=== PATIENT | female | born 1945 | race Caucasian/White ===

== ENCOUNTER 2018-01-03 13:37 | Emergency (ER) | payer MEDICARE, OTHER ==
[2018-01-03] MEDS ORDERED: NORMAL SALINE 1000 ML 1,000 ML IV ONE (14:10)
[2018-01-03] MEDS ORDERED: ONDANSETRON HCL INJ/PF 4 MG/2 ML SDV IV ONE (14:10)
--- NOTE | 2018-01-03 14:18 | ER Document Report ---
ED General - General Stated Complaint: VOMITING Time Seen by Provider: 01/03/18 13:53 TRAVEL OUTSIDE OF THE [place] IN LAST 30 DAYS: No - HPI Notes: Patient is a 72-year-old female with a history of GERD and hypertension who presents to the ED complaining of hematemesis prior to arrival, abdominal bloating, and abdominal pain. Patient states that she was cleaning the mandaen then her house when she began feeling symptoms and throw up in the bathroom. The blood was bright red per patient and daughter. Patient states that she has had dark/black stools for 1 week. Patient reports having a colonoscopy and endoscopy performed within the last couple years. Patient states that she has otherwise been eating and drinking without any difficulties. She is urinating normally. Patient states that she believes she has a ureterocele versus cystocele which has been a chronic developing pain, and which she is scheduled for an appointment with the women[facility] clinic tomorrow for. At this time patient family state that that is not the primary concern and what brought them in was the hematemesis. Patient otherwise has not had any recent illness. She denies any surgical abdominal history. Denies any drug allergies, smoking, or IV drug use. Denies any headache, fever, neck pain, changes in vision/speech/mentation/ hearing, URI, sore throat, chest pain, palpitations, syncope, cough, shortness of breath, wheeze, dyspnea, diarrhea, urinary retention, dysuria, hematuria, back pain, loss of control of bowel or bladder, numbness/tingling, saddle anesthesia, muscle paralysis/weakness, or rash. - Related Data Allergies/Adverse Reactions: No Known Allergies Allergy (Unverified 08/11/13 11:24) Past Medical History - Social History Smoking Status: Never Smoker Family History: Reviewed & Not Pertinent - Past Medical History Cardiac Medical History: Reports: Hx Hypercholesterolemia Musculoskeltal Medical History: Reports Hx Arthritis - Immunizations Hx Diphtheria, Pertussis, Tetanus Vaccination: Yes Review of Systems - Review of Systems -: Yes All other systems reviewed and negative Physical Exam - Vital signs Vitals: Temp Pulse Resp BP Pulse Ox 98.8 F 109 H 18 109/47 L 100 01/03/18 13:55 01/03/18 13:55 01/03/18 13:55 01/03/18 13:55 01/03/18 13:55 - Notes Notes: PHYSICAL EXAMINATION: GENERAL: Well-appearing, well-nourished and in no acute distress. A&Ox4. Answers questions appropriately. HEAD: Atraumatic, normocephalic. EYES: Pupils equal round and reactive to light, extraocular movements intact, sclera anicteric, conjunctiva are normal. ENT: Nares patent and without discharge. oropharynx clear without exudates. No tonsilar hypertrophy or erythema. Moist mucous membranes. NECK: Normal range of motion, supple without lymphadenopathy LUNGS: Breath sounds clear to auscultation bilaterally and equal. No wheezes rales or rhonchi. HEART: Regular rate and rhythm without murmurs, rubs, gallops. ABDOMEN: Soft, nondistended abdomen. No guarding, no rebound. No masses appreciated. Hypoactive bowel sounds present. No CVA tenderness bilaterally. + mid abdominal tenderness and mild to the epigastrum. + tympanic sounds to the abd, + firmness to palp. No tenderness at McBurney. Musculoskeletal: FROM to passive/active. Strength 5+/5. Extremities: No cyanosis, clubbing, or edema b/l. Peripheral pulses 2+. Capillary refill less than 3 seconds. NEUROLOGICAL: MMSE intact. Cranial nerves grossly intact. Normal speech, normal gait. Normal sensory, motor exams PSYCH: Normal mood, normal affect. SKIN: Warm, Dry, normal turgor, no rashes or lesions noted. Course - Re-evaluation Re-evalutation: 01/03/18 15:28 Patient is an afebrile, well-hydrated, 72-year-old female who presents to the ED with a GI bleed. Vitals are stable. PE is otherwise unremarkable. Patient is hemodynamically stable currently. Patient has a hemoglobin of 8.3 and a hematocrit of 23.1. Coagulations are stable. See CMP results. Guaiac positive. Patient had a bleeding episode of hematemesis prior to arrival. Type and screen has already been ordered at 1421. Patient does not warrant transfusion at this time, but we will recheck an H&H after 4 hours from when initial blood was drawn if pt is still in the ED. We will start transfer at this time as we do not have gastroenterology. Protonix bolus/cont ordered. 01/03/18 16:10 Pt began having hematemesis upon return from CT. x2 and then stopped Visual of bright red blood noted. Pt's pressure dropped to 70's over low 40's. HR 110 2L bolus' were started immediately I consulted with my supervising physician Dr. Mims, and started transfer for rapid transport. 01/03/18 16:35 CT results returned. See results. [facility] accepted. ([facility] not accepting patients at this time due to census issues--first choice of pt/family) Dr. Stevens ([facility]), rapid transport. We opted for flight due to current hemodynamic instability. Family are in agreement Pressure stabilizing to 80's over 40's approx and holding. Continue bolus', added octreotide. No pressors at this time. 01/03/18 16:50 BP approx 90's over 50's +/-. HR staying 100-110. No recurrence of emesis. Emergent blood release called for. 01/03/18 17:15 Pt on 4th liter bolus, 1 unit blood already given, 2nd hanging. BP remaining stable. Pt condition without acute changes 01/03/18 17:40 Pt has no new concerns or complaints. Vitals are holding stable for now. 113/53, HR 115 at discharge with flight crew. Reviewed case with the flight crew. Stable for transfer. 01/03/18 19:02 - Vital Signs Vital signs: Temp Pulse Resp BP Pulse Ox 98.5 F 109 H 18 113/53 L 100 01/03/18 17:45 01/03/18 13:55 01/03/18 17:46 01/03/18 17:46 01/03/18 17:45 - Laboratory Result Diagrams: 01/03/18 14:21 01/03/18 14:21 Laboratory results interpreted by me: 01/03/18 01/03/18 01/03/18 14:21 14:21 14:21 RBC 2.37 L Hgb 8.3 L Hct 23.1 L MCV 98 H MCH 35.2 H RDW 16.8 H Seg Neutrophils % 82.5 H Lymphocytes % 8.5 L PT 15.6 H Sodium 134.5 L Glucose 116 H Total Bilirubin 1.6 H Direct Bilirubin 0.6 H AST 91 H ALT 58 H Total Protein 5.3 L Albumin 2.9 L Crossmatch 01/03/18 14:21 RBC Hgb Hct MCV MCH RDW Seg Neutrophils % Lymphocytes % PT Sodium Glucose Total Bilirubin Direct Bilirubin AST ALT Total Protein Albumin Crossmatch See Detail Discharge - Discharge Clinical Impression: GI bleed Qualifiers: GI bleed type/associated pathology: unspecified gastrointestinal hemorrhage type Qualified Code(s): K92.2 - Gastrointestinal hemorrhage, unspecified Condition: Serious Disposition: [facility] Referrals: OMARI BALDERRAMA PA [Primary Care Provider] - Follow up as needed
[2018-01-03 14:49] LABS: ABSOLUTE BASOPHILS # (AUTO) 0.1 10^3/uL (0.0-0.2); ABSOLUTE EOSINOPHILS # (AUTO) 0.1 10^3/uL (0.0-0.6); ABSOLUTE LYMPHOCYTES (AUTO) 0.7 10^3/uL (0.5-4.7); ABSOLUTE MONOCYTES (AUTO) 0.6 10^3/uL (0.1-1.4); ABSOLUTE NEUT (AUTO) 6.5 10^3/uL (1.7-8.2); BASOPHILS % (AUTO) 0.7 % (0-2); EOSINOPHILS % (AUTO) 0.9 % (0-6); HEMATOCRIT 23.1 % (36.0-47.0); HEMOGLOBIN 8.3 g/dL (12.0-15.5); LYMPHOCYTES % (AUTO) 8.5 % (13-45); MEAN CORPUSCULAR HEMOGLOBIN 35.2 pg (27.0-33.4); MEAN CORPUSCULAR VOLUME 98 fl (80-97); MONOCYTES % (AUTO) 7.4 % (3-13); PLATELET COUNT 163 10^3/uL (150-450); RED BLOOD COUNT 2.37 10^6/uL (3.72-5.28); RED CELL DISTRIBUTION WIDTH 16.8 % (11.5-14.0); SEGMENTED NEUTROPHILS % (AUTO) 82.5 % (42-78); TOTAL CELLS COUNTED % (AUTO) 100 %; WHITE BLOOD COUNT 7.9 10^3/uL (4.0-10.5)
[2018-01-03 14:55] LABS: INTERNATIONAL RATION (INR) 1.16; PROTHROMBIN TIME 15.6 SEC (11.4-15.4)
[2018-01-03 14:56] LABS: PARTIAL THROMBOPLASTIN TIME 31.6 SEC (23.5-35.8)
[2018-01-03 15:08] LABS: ALANINE AMINOTRANSFERASE 58 U/L (9-52); ALBUMIN 2.9 g/dL (3.5-5.0); ALKALINE PHOSPHATASE 63 U/L (38-126); ANION GAP 5 (5-19); ASPARTATE AMINO TRANSFERASE 91 U/L (14-36); BILIRUBIN,DIRECT 0.6 mg/dL (0.0-0.4); BILIRUBIN,TOTAL 1.6 mg/dL (0.2-1.3); BLOOD UREA NITROGEN 17 mg/dL (7-20); CALCIUM 9.9 mg/dL (8.4-10.2); CARBON DIOXIDE 25 mmol/L (22-30); CHLORIDE 105 mmol/L (98-107); GLUCOSE 116 mg/dL (75-110); POTASSIUM 3.9 mmol/L (3.6-5.0); SODIUM 134.5 mmol/L (137-145); TOTAL PROTEIN 5.3 g/dL (6.3-8.2)
[2018-01-03] MEDS ORDERED: PANTOPRAZOLE SODIUM 40 MG VIAL IV PRN (15:26)
[2018-01-03] MEDS ORDERED: PANTOPRAZOLE SODIUM 40 MG VIAL IV ONE (15:26)
--- NOTE | 2018-01-03 16:05 | RADIOLOGY REPORT (SQ) ---
EXAM DESCRIPTION: CT ABD/PELVIS WITH IV ONLY COMPLETED DATE/TIME: 01/03/2018 3:53 pm REASON FOR STUDY: abdominal pain COMPARISON: None. TECHNIQUE: CT scan of the abdomen and pelvis performed using helical scanning technique with dynamic intravenous contrast injection. No oral contrast. Images reviewed with lung, soft tissue, and bone windows. Reconstructed coronal and sagittal MPR images reviewed. Delayed images for evaluation of the urinary system also acquired. All images stored on PACS. All CT scanners at this facility use dose modulation, iterative reconstruction, and/or weight based d osing when appropriate to reduce radiation dose to as low as reasonably achievable (ALARA). [facility]: Dose Right [facility]: CareDose [facility]: Dose Right [facility]: Teradose 4D [facility]: CrowdCompass CONTRAST TYPE AND DOSE: contrast/concentration: Isovue 370.00 mg/ml; Total Contrast Delivered: 69.0 ml; Total Saline Delivered: 45.0 ml RENAL FUNCTION: Creatinine 0.72 RADIATION DOSE: CT Rad equipment meets quality standard of care and radiation dose reduction techniq ues were employed. CTDIvol: NaN - NaN mGy. DLP: 0 mGy-cm.. LIMITATIONS: None. FINDINGS: LOWER CHEST: No significant findings. No nodules or infiltrates. LIVER: Normal size. No masses. No dilated ducts. SPLEEN: The spleen appears enlarged without focal splenic abnormalities being identified. PANCREAS: No masses. No significant calcifications. No adjacent inflammation or peripancreatic fluid collections. Pancreatic duct not dilated. GALLBLADDER: No identified stones by CT criteria. No inflammatory changes to suggest cholecystitis. ADRENAL GLANDS: No significant masses or asymmetry. RIGHT KIDNEY AND URETER: No solid masses. No significant calcifications. No hydronephrosis or hyd roureter. LEFT KIDNEY AND URETER: No solid masses. No significant calcifications. No hydronephrosis or hydr oureter. AORTA AND VESSELS: No aneurysm. No dissection. Renal arteries, SMA, celiac without stenosis. RETROPERITONEUM: No retroperitoneal adenopathy, hemorrhage or masses. BOWEL AND PERITONEAL CAVITY: No masses or inflammatory changes. A large amount of intra-abdominal an d pelvic ascitic fluid is identified. APPENDIX: Not and PELVIS: Large amount of pelvic ascitic fluid is identified. ABDOMINAL WALL: No masses. No hernias. BONES: No significant or acute findings. OTHER: No other significant finding. IMPRESSION: A large amount of intra-abdominal and pelvic ascitic fluid is identified. The spleen ap pears enlarged without focal splenic abnormalities being identified. Other findings as noted above TECHNICAL DOCUMENTATION: JOB ID: [id number] Quality ID # [id number]: Final reports with documentation of one or more dose reduction techniques (e.g., Au tomated exposure control, adjustment of the mA and/or kV according to patient size, use of iterative reconstruction technique) 2010 [employer]- All Rights Reserved
--- NOTE | 2018-01-03 16:13 | RADIOLOGY REPORT (SQ) ---
EXAM DESCRIPTION: CHEST SINGLE VIEW COMPLETED DATE/TIME: 01/03/2018 3:59 pm REASON FOR STUDY: abdominal/epigastric pain COMPARISON: February 2014 EXAM PARAMETERS: NUMBER OF VIEWS: One view. TECHNIQUE: Single frontal radiographic view of the chest acquired. RADIATION DOSE: NA LIMITATIONS: None. FINDINGS: LUNGS AND PLEURA: No opacities, masses or pneumothorax. No pleural effusion. MEDIASTINUM AND HILAR STRUCTURES: No masses. Contour normal. HEART AND VASCULAR STRUCTURES: Heart normal in size. Normal vasculature. BONES: No acute findings. HARDWARE: None in the chest. OTHER: Some elevation of the right hemidiaphragm is seen. IMPRESSION: NO ACUTE RADIOGRAPHIC FINDING IN THE CHEST. TECHNICAL DOCUMENTATION: JOB ID: [id number] [employer]- All Rights Reserved
[2018-01-03] MEDS ORDERED: NORMAL SALINE 500 ML with OCTREOTIDE ACETATE 500 MCG IV PRN ×2 (16:28)
[2018-01-03] MEDS ORDERED: NORMAL SALINE 250 ML IV PRN (16:33)
[2018-01-03] MEDS ORDERED: OCTREOTIDE ACETATE INJ/PF 100 MCG/1 ML SDV IV PRN (17:20)
[2018-01-03 18:24] VITALS: BP 113/53
[2018-01-03 21:39] LABS: APPEARANCE,URINE SLIGHTLY-CLOUDY; BILIRUBIN,URINE NEGATIVE (NEGATIVE); COLOR,URINE YELLOW; GLUCOSE, URINE NEGATIVE (NEGATIVE); KETONES,URINE NEGATIVE (NEGATIVE); LEUKOCYTE ESTERASE,URINE NEGATIVE (NEGATIVE); NITRITE,URINE NEGATIVE (NEGATIVE); PROTEIN,URINE NEGATIVE (NEGATIVE); URINE SPECIFIC GRAVITY 1.034; UROBILINOGEN,URINE NEGATIVE mg/dL (<2.0)
--- NOTE | 2018-01-04 08:55 | EKG REPORT ---
SEVERITY:- BORDERLINE ECG - SINUS TACHYCARDIA BORDERLINE T ABNORMALITIES, DIFFUSE LEADS : Confirmed by: Franklin Meneses 04-Jan-2018 08:54:52
== END 2018-01-03 17:25 | disposition short-term general hospital (02) ==
LOC: ER 13:37
DX: K92.2 Gastrointestinal hemorrhage, unspecified (principal); R14.0 Abdominal distension (gaseous); R11.10 Vomiting, unspecified; K21.9 Gastro-esophageal reflux disease without esophagitis; E78.00 Pure hypercholesterolemia, unspecified
CPT/HCPCS: 93005; 99285; 96361; 96375; 96365; 96366; 86900; 86901; 36415; 36430; 86850; 85025; 85610; 85730; 82272; 80053; 81001; 86920; 71045; 74177; 93010; P9016; A9270; C9113; J2405; J7030; J2354; S0164

== ENCOUNTER 2018-02-13 15:26 | Day surgery (SDC) | payer MEDICARE, OTHER ==
[2018-02-13] MEDS ORDERED: NALOXONE HCL INJ/PF 0.4 MG/1 ML SDV ONE (16:13)
[2018-02-13] MEDS ORDERED: MIDAZOLAM 2 MG/2 ML INJ ONE (16:14)
[2018-02-13] MEDS ORDERED: GLUCAGON,HUMAN RECOMB 1 MG INJ ONE (16:14)
[2018-02-13] MEDS ORDERED: FLUMAZENIL INJ 0.5 MG/5 ML VIAL ONE (16:14)
[2018-02-13] MEDS ORDERED: EPINEPHRINE INJ 1 MG/10 ML DISP.SYRIN ONE (16:14)
[2018-02-13] MEDS ORDERED: ONDANSETRON HCL INJ/PF 4 MG/2 ML SDV ONE (17:16)
[2018-02-13] MEDS: FENTANYL CITRATE INJ/PF 100 MCG/2 ML AMPUL ONE ×2 (17:31→17:32)
--- NOTE | 2018-02-13 18:11 | Operative Report ---
Operative Report DATE OF SURGERY: 02/13/18 Operative Report: Pre-op diagnosis: History of esophageal varices with bleeding Post-op diagnosis: 1. Esophageal varices 2. Antral gastritis Surgery: Esophagogastroduodenoscopy with biopsy and variceal banding Medications: Versed 2mg Fentanyl 100mcg IV push Tissue removed: Antral biopsy for pathology Procedure: After informed consent obtained from patient, the throat was sprayed with Hurricane and conscious sedation was achieved. The upper endoscope was inserted into the esophagus under direct vision and advanced into the stomach. The duodenum was entered and examined to the second part. Endoscope was then slowly pulled out of the patient as the mucosa was examined into details. Patient tolerated procedure well. Findings Esophagus: 2 short columns of varices were identified and 4 rubber bands were applied. Antrum: Mild erythema. Biopsy was taken Body: Normal Fundus: Normal Duodenum first part: Normal Duodenum second part: Normal Plan: Await pathology. Continue omeprazole and nadolol. Use Viscous Lidocaine as needed and Carafate 4 times a day for 1 week. Repeat EGD in 4-6 weeks OPERATION: .
[2018-02-13 18:42] VITALS: BP 130/70
== END 2018-02-13 18:54 | disposition home or self-care (01) ==
LOC: END 15:26
PROVIDERS: ATTEND Internal Medicine Gastroenterology
DX: I85.00 Esophageal varices without bleeding (principal); K29.70 Gastritis, unspecified, without bleeding; K74.69 Other cirrhosis of liver; R18.8 Other ascites; K76.6 Portal hypertension; M06.9 Rheumatoid arthritis, unspecified; E78.5 Hyperlipidemia, unspecified; R00.2 Palpitations; D64.9 Anemia, unspecified; Z79.899 Other long term (current) drug therapy; Z85.89 Personal history of malignant neoplasm of other organs and systems
CPT/HCPCS: 43239; 43244; 88342 ×2; 88305 ×2; J2250; J3010; J2405; J0171; J1610; J2310; J3490

== ENCOUNTER 2018-03-27 15:14 | Day surgery (SDC) | payer MEDICARE, OTHER ==
[2018-03-27] MEDS ORDERED: NALOXONE HCL INJ/PF 0.4 MG/1 ML SDV ONE (15:40)
[2018-03-27] MEDS ORDERED: EPINEPHRINE INJ 1 MG/10 ML DISP.SYRIN ONE (15:41)
[2018-03-27] MEDS ORDERED: GLUCAGON,HUMAN RECOMB 1 MG INJ ONE (15:41)
[2018-03-27] MEDS ORDERED: FLUMAZENIL INJ 0.5 MG/5 ML VIAL ONE (15:41)
[2018-03-27] MEDS ORDERED: MIDAZOLAM 2 MG/2 ML INJ ONE (15:41)
[2018-03-27] MEDS: FENTANYL CITRATE INJ/PF 100 MCG/2 ML AMPUL ONE ×2 (18:45→18:47)
[2018-03-27] MEDS ORDERED: ONDANSETRON HCL INJ/PF 4 MG/2 ML SDV ONE (18:45)
--- NOTE | 2018-03-27 19:08 | Operative Report ---
Operative Report DATE OF SURGERY: 03/27/18 Operative Report: Pre-op diagnosis: History of cirrhosis with esophageal varices Post-op diagnosis: 1. Distal esophageal varices Surgery: Esophagogastroduodenoscopy with variceal rubberbanding Medications: Versed 2mg Fentanyl 100mcg IV push Tissue removed: None Procedure: After informed consent obtained from patient, the throat was sprayed with Hurricane and conscious sedation was achieved. The upper endoscope was inserted into the esophagus under direct vision and advanced into the stomach. The duodenum was entered and examined to the second part. Endoscope was then slowly pulled out of the patient as the mucosa was examined into details. Patient tolerated procedure well. Findings Esophagus: 2 short columns of varices were identified in the distal esophagus with areas of scarring. 4 rubber bands were applied Antrum: Normal Body: Normal Fundus: Normal Duodenum first part: Normal Duodenum second part: Normal Plan: Follow-up EGD with banding in 3-6 months OPERATION: .
[2018-03-27 19:51] VITALS: BP 120/65
== END 2018-03-27 20:00 | disposition home or self-care (01) ==
LOC: END 15:14
PROVIDERS: ATTEND Internal Medicine Gastroenterology
DX: I85.00 Esophageal varices without bleeding (principal); K74.69 Other cirrhosis of liver; K76.6 Portal hypertension; M06.9 Rheumatoid arthritis, unspecified; E78.5 Hyperlipidemia, unspecified; D64.9 Anemia, unspecified; Z79.899 Other long term (current) drug therapy; Z85.89 Personal history of malignant neoplasm of other organs and systems; Z87.19 Personal history of other diseases of the digestive system
CPT/HCPCS: 43244; J2250; J3010; J2405; J0171; J1610; J2310; J3490

== ENCOUNTER → 2018-08-21 | Outpatient (CLI) | payer MEDICARE, OTHER ==
--- NOTE | 2018-08-21 15:10 | WOMENS IMAGING REPORT ---
EXAM DESCRIPTION: BONE DENSITY HIP/SPINE COMPLETED DATE/TIME: 08/21/2018 2:13 pm REASON FOR STUDY: BONE DENSITY SCAN /M81.0 M81.0 AGE-RELATED OSTEOPOROSIS W/O CURRENT PATHOLOGICAL FRAC COMPARISON: None. TECHNIQUE: Dual-Energy X-ray Absorptiometry (DEXA) of the AP Spine and Hip. LIMITATIONS: None. FINDINGS: LUMBAR SPINE: The bone mineral density (BMD) measured from L1-L4 in the AP projection correlates with a T-score of -1.6, which is osteopenia as defined by the World Health Organization. HIP: The bone mineral density (BMD) measured in the left hip correlates with a T-score of -2.3, which is o steopenia as defined by the World Health Organization. IMPRESSION: 1. LUMBAR SPINE: OSTEOPENIA. 2. HIP: OSTEOPENIA. COMMENT: The patient has been treated for osteoporosis. The World Health Organization defines low BMD as follows: T-score: Normal: Greater than -1.0 Osteopenia: Between -1.0 and -2.5 Osteoporosis: Less than -2.5 without fractures Established osteoporosis: Less than -2.5 with fractures In general, you may wish to consider: Diagnosis Treatment Follow-up DEXA Normal BMD Prevention 2-3 years Osteopenia Prevention/Therapy 1-2 years Osteoporosis Therapy Yearly TECHNICAL DOCUMENTATION: JOB ID: [id number] [employer]- All Rights Reserved Reading location - IP/workstation name: [email or web address]
== END ==
LOC: WI 13:39
PROVIDERS: ATTEND Internal Medicine
DX: M81.0 Age-related osteoporosis without current pathological fracture (principal)
CPT/HCPCS: 77080

== ENCOUNTER → 2018-09-14 | Outpatient (CLI) | payer MEDICARE, OTHER ==
--- NOTE | 2018-09-14 08:35 | RADIOLOGY REPORT (SQ) ---
EXAM DESCRIPTION: U/S ABDOMEN LIMITED W/O DOP COMPLETED DATE/TIME: 09/14/2018 8:24 am REASON FOR STUDY: CIRRHOSIS, NON-ALCOHOL (K74.69) K74.69 OTHER CIRRHOSIS OF LIVER COMPARISON: CT abdomen pelvis dated 01/03/2018 TECHNIQUE: Dynamic and static grayscale images acquired of the abdomen and recorded on PACS. Additio nal selected color Doppler and spectral images recorded. LIMITATIONS: None. FINDINGS: PANCREAS: No masses. Visualized pancreatic duct normal caliber. LIVER: The liver is echogenic consistent with fatty infiltration. No focal masses. LIVER VASCULATURE: Normal directional flow of the main portal vein and hepatic veins. GALLBLADDER: No stones. Normal wall thickness. No pericholecystic fluid. ULTRASOUND-DETECTED DICKEY'S SIGN: Negative. INTRAHEPATIC DUCTS AND COMMON DUCT: CBD and intrahepatic ducts normal caliber. No filling defects. INFERIOR VENA CAVA: Normal flow. AORTA: No aneurysm. RIGHT KIDNEY: Normal size. Normal echogenicity. No solid or suspicious masses. No hydronephrosis. No calcifications. The inferior pole is obscured by overlying bowel gas. PERITONEAL AND RIGHT PLEURAL SPACE: No ascites or effusions. OTHER: No other significant findings. IMPRESSION: Fatty infiltrated liver. No other significant findings. TECHNICAL DOCUMENTATION: JOB ID: [id number] [employer]- All Rights Reserved Reading location - IP/workstation name: [email or web address]
== END ==
LOC: RAD 07:47
PROVIDERS: ATTEND Internal Medicine Gastroenterology
DX: K74.69 Other cirrhosis of liver (principal)
CPT/HCPCS: 76705

== ENCOUNTER 2018-09-18 15:40 | Day surgery (SDC) | payer MEDICARE, OTHER ==
[2018-09-18] MEDS ORDERED: ONDANSETRON HCL INJ/PF 4 MG/2 ML SDV ONE (15:52)
[2018-09-18] MEDS ORDERED: FENTANYL CITRATE INJ/PF 100 MCG/2 ML AMPUL ONE (15:52)
[2018-09-18] MEDS ORDERED: NALOXONE HCL INJ/PF 0.4 MG/1 ML SDV ONE (15:53)
[2018-09-18] MEDS ORDERED: MIDAZOLAM 2 MG/2 ML INJ ONE (15:53)
[2018-09-18] MEDS ORDERED: EPINEPHRINE INJ 1 MG/10 ML DISP.SYRIN ONE (15:53)
[2018-09-18] MEDS ORDERED: FLUMAZENIL INJ 0.5 MG/5 ML VIAL ONE (15:53)
[2018-09-18] MEDS ORDERED: GLUCAGON,HUMAN RECOMB 1 MG INJ ONE (15:53)
--- NOTE | 2018-09-18 17:15 | Operative Report ---
Operative Report DATE OF SURGERY: 09/18/18 Operative Report: Pre-op diagnosis: History of esophageal varices Post-op diagnosis: 1. Antral gastritis 2. No significant esophageal varices Surgery: Esophagogastroduodenoscopy with biopsy Medications: Versed 2mg Fentanyl 1000mcg IV push Tissue removed: Antral and gastric body biopsy for pathology Procedure: After informed consent obtained from patient, the throat was sprayed with Hurricane and conscious sedation was achieved. The upper endoscope was inserted into the esophagus under direct vision and advanced into the stomach. The duodenum was entered and examined to the second part. Endoscope was then slowly pulled out of the patient as the mucosa was examined into details. Patient tolerated procedure well. Findings Esophagus: There was scarring in the distal esophagus with no significant varix Z-line at: 39 cm Antrum: Mild erythema was noted. Body: Normal Fundus: Normal Duodenum first part: Normal Duodenum second part: Normal Plan: Await pathology. Continue omeprazole repeat EGD in 1 year OPERATION: .
[2018-09-18 18:26] VITALS: BP 122/61
== END 2018-09-18 18:30 | disposition home or self-care (01) ==
LOC: END 15:40
PROVIDERS: ATTEND Internal Medicine Gastroenterology
DX: K74.69 Other cirrhosis of liver (principal); K76.6 Portal hypertension; I85.00 Esophageal varices without bleeding; K29.50 Unspecified chronic gastritis without bleeding
CPT/HCPCS: 43239; 88342 ×2; 88305 ×2; J2250; J3010; J2405; J0171; J1610; J2310; J3490

== ENCOUNTER → 2019-07-15 | Outpatient (CLI) | payer MEDICARE, OTHER ==
--- NOTE | 2019-07-15 10:29 | WOMENS IMAGING REPORT ---
EXAM DESCRIPTION: U/S ABDOMEN LIMITED COMPLETED DATE/TIME: 07/15/2019 10:15 am REASON FOR STUDY: K74.69 CIRRHOSIS NON ALCOHOL K74.69 OTHER CIRRHOSIS OF LIVER COMPARISON: None. TECHNIQUE: Dynamic and static grayscale images acquired of the abdomen and recorded on PACS. Zahidao gayle selected color Doppler and spectral images recorded. LIMITATIONS: None. FINDINGS: PANCREAS: No masses. Visualized pancreatic duct normal caliber. LIVER: The liver is echogenic consistent with fatty infiltration. No focal masses. LIVER VASCULATURE: Normal directional flow of the main portal vein and hepatic veins. GALLBLADDER: No stones. Normal wall thickness. No pericholecystic fluid. ULTRASOUND-DETECTED DICKEY'S SIGN: Negative. INTRAHEPATIC DUCTS AND COMMON DUCT: CBD and intrahepatic ducts normal caliber. No filling defects. INFERIOR VENA CAVA: Normal flow. AORTA: No aneurysm. RIGHT KIDNEY: Normal size. Normal echogenicity. No solid or suspicious masses. No hydronephrosis. No calcifications. PERITONEAL AND RIGHT PLEURAL SPACE: No ascites or effusions. OTHER: No other significant findings. IMPRESSION: Fatty infiltrated liver. No other significant findings. TECHNICAL DOCUMENTATION: JOB ID: [id number] [employer]- All Rights Reserved Reading location - IP/workstation name: [email or web address]
== END ==
LOC: WI 09:20
PROVIDERS: ATTEND Internal Medicine Gastroenterology
DX: K74.69 Other cirrhosis of liver (principal)
CPT/HCPCS: 76705

== ENCOUNTER 2019-09-17 15:46 | Day surgery (SDC) | payer MEDICARE, OTHER ==
[2019-09-17] MEDS ORDERED: DIPHENHYDRAMINE HCL 50 MG/ML VIAL ONE (15:55)
[2019-09-17] MEDS ORDERED: ONDANSETRON HCL INJ/PF 4 MG/2 ML SDV ONE (15:55)
[2019-09-17] MEDS ORDERED: GLUCAGON,HUMAN RECOMB 1 MG INJ ONE (15:56)
[2019-09-17] MEDS ORDERED: NALOXONE HCL INJ/PF 0.4 MG/1 ML SDV ONE (15:56)
[2019-09-17] MEDS ORDERED: FLUMAZENIL INJ 0.5 MG/5 ML VIAL ONE (15:56)
[2019-09-17] MEDS ORDERED: EPINEPHRINE INJ 1 MG/10 ML DISP.SYRIN ONE (15:56)
[2019-09-17] MEDS ORDERED: FENTANYL CITRATE INJ/PF 100 MCG/2 ML AMPUL ONE (15:56)
[2019-09-17] MEDS: MIDAZOLAM 2 MG/2 ML INJ ONE ×2 (16:35→16:40)
--- NOTE | 2019-09-17 16:50 | Operative Report ---
Operative Report DATE OF SURGERY: 09/17/19 Operative Report: Pre-op diagnosis: History of cirrhosis and esophageal varices Post-op diagnosis: 1. Mild antral gastritis 2. No esophageal varices Surgery: Esophagogastroduodenoscopy with biopsy Medications: Versed 2mg Fentanyl 50mcg IV push Tissue removed: Antral and gastric body biopsy for pathology Procedure: After informed consent obtained from patient, the throat was sprayed with Hurricane and conscious sedation was achieved. The upper endoscope was inserted into the esophagus under direct vision and advanced into the stomach. The duodenum was entered and examined to the second part. Endoscope was then slowly pulled out of the patient as the mucosa was examined into details. Patient tolerated procedure well. Findings Esophagus: Evidence of scarring from previous rubber banding identified. No significant varices identified Antrum: Mild erythema Body: Normal Fundus: Normal Duodenum first part: Normal Duodenum second part: Normal Plan: Await pathology. Repeat EGD in 1 year and continue nadolol OPERATION: .
[2019-09-17 18:04] VITALS: BP 107/63
== END 2019-09-17 17:55 | disposition home or self-care (01) ==
LOC: END 15:46
PROVIDERS: ATTEND Internal Medicine Gastroenterology
DX: I85.00 Esophageal varices without bleeding (principal); K29.50 Unspecified chronic gastritis without bleeding; K29.80 Duodenitis without bleeding
CPT/HCPCS: 43239; 88305 ×2; J2250; J3010; J2405; J0171; J1200; J1610; J2310; J3490

== ENCOUNTER → 2020-03-25 | Outpatient (CLI) | payer MEDICARE, OTHER ==
--- NOTE | 2020-03-25 09:25 | RADIOLOGY REPORT (SQ) ---
EXAM DESCRIPTION: U/S ABDOMEN LIMITED W/O DOP IMAGES COMPLETED DATE/TIME: 03/25/2020 9:07 am REASON FOR STUDY: CIRRHOSIS, NON-ALCOHOL (K74.69) K74.69 OTHER CIRRHOSIS OF LIVER COMPARISON: 07/15/2019 TECHNIQUE: Dynamic and static grayscale images acquired of the abdomen and recorded on PACS. Additio nal selected color Doppler and spectral images recorded. LIMITATIONS: None. FINDINGS: PANCREAS: No masses. Visualized pancreatic duct normal caliber. LIVER: No focal lesions. No intrahepatic ductal dilation. Nodular contour with heterogeneous echote xture. LIVER VASCULATURE: Normal directional flow of the main portal vein and hepatic veins. GALLBLADDER: No stones. Normal wall thickness. No pericholecystic fluid. ULTRASOUND-DETECTED DICKEY'S SIGN: Negative. INTRAHEPATIC DUCTS AND COMMON DUCT: No intrahepatic ductal dilation. Prominent CBD measuring 7 mm, p reviously 4 mm. No obstructing lesion identified. INFERIOR VENA CAVA: Normal flow. AORTA: No aneurysm. RIGHT KIDNEY: Normal size measuring 10.3 cm. Normal echogenicity. No solid or suspicious masses. No hydronephrosis. No calcifications. PERITONEAL AND RIGHT PLEURAL SPACE: No ascites or effusions. OTHER: No other significant findings. IMPRESSION: 1. Heterogeneous hepatic echotexture and mildly nodular contour suggestive of intrinsic liver disease. No ascites. 2. Increased size of the CBD measuring 7 mm, previously 4 mm. No intrahepatic ductal dilation or ob structing lesion identified. Recommend correlation with LFTs. MRCP could be considered for further characterization TECHNICAL DOCUMENTATION: JOB ID: [id number] [employer]- All Rights Reserved Reading location - IP/workstation name: [email or web address]
== END ==
LOC: RAD 07:33
PROVIDERS: ATTEND Internal Medicine Gastroenterology
DX: K74.69 Other cirrhosis of liver (principal)
CPT/HCPCS: 76705

== ENCOUNTER 2020-09-11 12:43 | Day surgery (SDC) | payer MEDICARE, OTHER ==
[2020-09-11] MEDS ORDERED: PROPOFOL INJ 200 MG/20 ML VIAL IV ONE (14:38)
--- NOTE | 2020-09-11 14:55 | Operative Report ---
Operative Report DATE OF SURGERY: 09/11/20 Operative Report: Pre-op diagnosis: History of esophageal varices and cirrhosis Post-op diagnosis: 1. Mild antral gastritis 2. Small esophageal varix Surgery: Esophagogastroduodenoscopy with biopsy Medications: As per anesthesia Tissue removed: Antral biopsy for pathology Procedure: After informed consent obtained from patient, the throat was sprayed with Hurricane and conscious sedation was achieved. The upper endoscope was inserted into the esophagus under direct vision and advanced into the stomach. The duodenum was entered and examined to the second part. Endoscope was then slowly pulled out of the patient as the mucosa was examined into details. Patient tolerated procedure well. Findings Esophagus: Small varix was noted in the distal esophagus with scarring from previous rubber banding Antrum: Mild erythema Body: Normal Fundus: Normal Duodenum first part: Normal Duodenum second part: Normal Plan: Await pathology. Repeat EGD in 1 year OPERATION: .
[2020-09-11 15:35] VITALS: BP 127/70
== END 2020-09-11 15:50 | disposition home or self-care (01) ==
LOC: END 12:43
PROVIDERS: ATTEND Internal Medicine Gastroenterology
DX: K29.50 Unspecified chronic gastritis without bleeding (principal); K74.69 Other cirrhosis of liver; I85.00 Esophageal varices without bleeding; K21.9 Gastro-esophageal reflux disease without esophagitis; M06.9 Rheumatoid arthritis, unspecified; E78.5 Hyperlipidemia, unspecified; K76.0 Fatty (change of) liver, not elsewhere classified; Z20.828 Contact with and (suspected) exposure to other viral communicable diseases; Z79.899 Other long term (current) drug therapy; Z86.010 Personal history of colon polyps; Z80.0 Family history of malignant neoplasm of digestive organs
CPT/HCPCS: 43239; 88342 ×2; 88305 ×2; 00731; U0003; J2704; C9803; 731; 87635

== ENCOUNTER → 2020-10-01 | Outpatient (CLI) | payer MEDICARE, OTHER ==
--- NOTE | 2020-10-01 10:34 | WOMENS IMAGING REPORT ---
EXAM DESCRIPTION: BONE DENSITY HIP/SPINE IMAGES COMPLETED DATE/TIME: 10/01/2020 9:18 am REASON FOR STUDY: M81.0 AGE-RELATED OSTEOPOROSIS W/O CURRENT PATHOLOGICAL FRACTURE K74.69 OTHER CIR RHOSIS OF LIVER M81.0 AGE-RELATED OSTEOPOROSIS W/O CURRENT PATHOLOGICAL FRAC COMPARISON: 08/21/2018 TECHNIQUE: Dual-Energy X-ray Absorptiometry (DEXA) of the AP Spine and Hip. LIMITATIONS: None. FINDINGS: LUMBAR SPINE: The bone mineral density (BMD) measured from L1-L4 in the AP projection correlates with a T-score of -1.5, which is osteopenia as defined by the World Health Organization. BMD Change vs Baseline: N/A HIP: The bone mineral density (BMD) measured in the left hip correlates with a T-score of -2.4, which is o steopenia as defined by the World Health Organization. BMD Change vs Baseline: N/A 10 year Fracture Risk Assessment: Major Osteoporotic Fracture: Not available. Hip Fracture: Not available. IMPRESSION: 1. LUMBAR SPINE WHO CLASSIFICATION: OSTEOPENIA. 2. HIP WHO CLASSIFICATION: OSTEOPENIA. OVERALL ASSESSMENT: WHO CLASSIFICATION: OSTEOPENIA. COMMENT: The World Health Organization defines low BMD as follows: T-score: Normal: At or above -1.0 Osteopenia: Between -1.0 and -2.5 Osteoporosis: At or below -2.5 without fractures Established osteoporosis: At or below -2.5 with fractures In general, you may wish to consider: Diagnosis Treatment Follow-up DEXA Normal BMD Prevention 2-3 years Osteopenia Prevention/Therapy 1-2 years Osteoporosis Therapy Yearly TECHNICAL DOCUMENTATION: JOB ID: [id number] 2010 [employer]- All Rights Reserved Reading location - IP/workstation name: [email or web address]
--- NOTE | 2020-10-01 10:36 | WOMENS IMAGING REPORT ---
EXAM DESCRIPTION: U/S ABDOMEN LIMITED IMAGES COMPLETED DATE/TIME: 10/01/2020 9:09 am REASON FOR STUDY: K74.69 OTHER CIRRHOSIS OF LIVER K74.69 OTHER CIRRHOSIS OF LIVER M81.0 AGE-RELATE D OSTEOPOROSIS W/O CURRENT PATHOLOGICAL FRAC COMPARISON: 03/25/2020 TECHNIQUE: Dynamic and static grayscale images acquired of the abdomen and recorded on PACS. Additio nal selected color Doppler and spectral images recorded. LIMITATIONS: None. FINDINGS: PANCREAS: No masses. Visualized pancreatic duct normal caliber. LIVER: Normal size. Sub capsular nodularity. No focal lesions. LIVER VASCULATURE: Normal directional flow of the main portal vein and hepatic veins. GALLBLADDER: No stones. Normal wall thickness. No pericholecystic fluid. ULTRASOUND-DETECTED DICKEY'S SIGN: Negative. INTRAHEPATIC DUCTS AND COMMON DUCT: CBD and intrahepatic ducts normal caliber. No filling defects. INFERIOR VENA CAVA: Normal flow. AORTA: No aneurysm. RIGHT KIDNEY: Normal size. Normal echogenicity. No solid or suspicious masses. No hydronephrosis. No calcifications. PERITONEAL AND RIGHT PLEURAL SPACE: No ascites or effusions. OTHER: No other significant findings. IMPRESSION: Cirrhosis. No ascites. TECHNICAL DOCUMENTATION: JOB ID: [id number] 2010 [employer]- All Rights Reserved Reading location - IP/workstation name: [email or web address]
--- OUTSIDE RECORDS SUMMARY | 2020-10-02 15:14 | XMS REPORT ---
:1945 Author Organization [facility] [place] [facility] [place] [address] [place] [id number] Care Team Providers Name Role Phone PCP, UNAVAILABLE Primary Care Physician Unavailable Allergies, Adverse Reactions, Alerts This patient has no known allergies or adverse reactions. Medications This patient has no known medications. Problems This patient has no known problems. Procedures This patient has no known procedures. Results This patient has no known results. Encounters Start End Encounter Admission Attending Care Care Encounter Date/Time Date/Time Type Type Clinicians Facility Department ID 2018-05-14 2018-05-14 Outpatient [facility] [id number] 15:44:16 23:59:00 [id number] 2018-05-14 2018-05-14 Outpatient [facility] [id number] 00:00:00 00:00:00 _[id number] Payers Payer Name Policy Type Policy Number Effective Date Expiration D ate MEDICARE PART A AND [id number] 2010 00:00:00 PART B Social History This patient has no known social history. Vital Signs This patient has no known vital signs.
== END ==
LOC: WI 08:35
PROVIDERS: ATTEND Internal Medicine Gastroenterology
DX: K74.69 Other cirrhosis of liver (principal); M81.0 Age-related osteoporosis without current pathological fracture
CPT/HCPCS: 76705; 77080